=== PATIENT | male | born 1975 | race Caucasian/White ===

== ENCOUNTER → 2017-09-04 | Outpatient (CLI) | payer OTHER, BC ==
[~2017-09-04] MED LIST: ATOR10TA PO; HYDR12.58 PO; HYDROCODONE PO; LISI40TA PO; METH750T2 PO
[2017-09-04 09:30] LABS: HEMATOCRIT 55.7 % (39.2-51.8); WHITE BLOOD COUNT 6.9 x10^3/uL (3.4-10)
[2017-09-04 09:44] LABS: BLOOD UREA NITROGEN 24 mg/dL (7-18)
[2017-09-04 09:48] LABS: ASPARTATE AMINO TRANSFERASE 38 U/L (15-37)
== END | disposition home or self-care (01) ==
LOC: STAR 08:34
PROVIDERS: ATTEND Neurological Surgery
DX: Z01.818 Encounter for other preprocedural examination (principal); M51.36 Other intervertebral disc degeneration, lumbar region; M48.02 Spinal stenosis, cervical region
CPT/HCPCS: 36415; 71020; 80053; 81003; 85025; 85610; 85730; 93005

== ENCOUNTER 2017-09-14 07:00 | Inpatient (IN) | payer OTHER, BC ==
[~2017-09-14] VITALS: Ht 188 cm; Wt 97.4 kg
[2017-09-14] MEDS ORDERED: LACTATED RINGERS 1,000 ML IV SCH (09:37)
[2017-09-14 09:43] VITALS: BP 167/91
[2017-09-14] MEDS ORDERED: FENTANYL PF 250 MCG/5ML ONE (10:19)
[2017-09-14] MEDS ORDERED: MIDAZOLAM 1 MG/ML, 2ML ONE (10:19)
[2017-09-14] MEDS ORDERED: ROCURONIUM 10 MG/ML,10ML ONE ×2 (10:20→13:16)
[2017-09-14] MEDS ORDERED: SUCCINYLCHOLINE 20 MG/ML, 10ML ONE (10:21)
[2017-09-14] MEDS ORDERED: PROPOFOL 150 ML ONE (10:23)
[2017-09-14] MEDS ORDERED: BUPIVACAINE/PF 0.5% ONE (11:03)
[2017-09-14] MEDS ORDERED: THROMBIN 5,000 UNIT VIAL TP ONE (11:04)
[2017-09-14] MEDS ORDERED: EPINEPHRINE 1 MG/ML, 1ML ONE (11:04)
[2017-09-14] MEDS ORDERED: BACITRACIN 50,000 UNIT ONE (11:04)
[2017-09-14] MEDS ORDERED: DEXAMETHASONE 4 MG/ML, 1ML ONE ×3 (11:22)
[2017-09-14] MEDS ORDERED: BUPIVACAINE/PF-EPI 0.5% 1:200K INFIL ONE (11:59)
[2017-09-14] MEDS ORDERED: PROPOFOL 50 ML ONE (13:13)
[2017-09-14] MEDS ORDERED: ONDANSETRON 2MG/ML, 2ML ONE (13:16)
[2017-09-14] MEDS ORDERED: ACETAMINOPHEN 325 MG TABLET ONE (14:21)
[2017-09-14] MEDS ORDERED: FENTANYL PF 100 MCG/2ML ONE (14:21)
[2017-09-14] MEDS ORDERED: OXYcodone 5 MG/5 ML ORAL.SOL UDC ONE (14:21)
[2017-09-14] MEDS: FENTANYL PF 100 MCG/2ML IV PRN ×2 (14:27→14:46)
[2017-09-14] MEDS ORDERED: MAGNESIUM HYDROXIDE 8%, 30ML UDC PO PRN (14:30)
[2017-09-14] MEDS ORDERED: ACETAMINOPHEN 325 MG TABLET PO PRN (14:30)
[2017-09-14] MEDS ORDERED: SENNA/DOCUSATE TABLET PO PRN (14:30)
[2017-09-14] MEDS ORDERED: HYDROcodone/APAP 5/325 TABLET PO PRN (14:30)
[2017-09-14] MEDS ORDERED: ONDANSETRON 2MG/ML, 2ML IVPush PRN ×2 (14:30)
[2017-09-14] MEDS ORDERED: BISACODYL 10 MG SUPP PR PRN (14:30)
[2017-09-14] MEDS ORDERED: MEPERIDINE/PF 25MG/0.5ML IVPush PRN (14:30)
[2017-09-14] MEDS ORDERED: PROMETHAZINE 25 MG/ML, 1ML IM PRN (14:30)
[2017-09-14] MEDS ORDERED: PROMETHAZINE 25 MG/ML, 1ML IV PRN (14:30)
[2017-09-14] MEDS ORDERED: DIAZEPAM 5 MG/ML, 2ML IVPush PRN (14:30)
[2017-09-14] MEDS ORDERED: METHOCARBAMOL 750 MG TABLET PO PRN (14:30)
[2017-09-14] MEDS ORDERED: HYDROmorphone 1 MG/ML, 1ML IVPush PRN (14:30)
[2017-09-14] MEDS ORDERED: LABETALOL 5MG/ML, 20ML IV PRN (14:30)
[2017-09-14] MEDS ORDERED: hydrALAzine 20 MG/ML, 1ML IV PRN (14:30)
[2017-09-14] MEDS ORDERED: LABETALOL 5MG/ML, 20ML IVPush PRN (14:30)
[2017-09-14] MEDS ORDERED: PHARMACY MAY ADJ FOR RENAL FX MC PRN (14:30)
[2017-09-14] MEDS ORDERED: DIPHENHYDRAMINE 50 MG/ML, 1ML IM PRN (14:30)
[2017-09-14] MEDS ORDERED: DIPHENHYDRAMINE 50 MG/ML, 1ML IVPush PRN (14:30)
[2017-09-14] MEDS ORDERED: DIPHENHYDRAMINE 50 MG CAPSULE PO PRN (14:30)
[2017-09-14] MEDS ORDERED: OXYcodone 5 MG/5 ML ORAL.SOL UDC PO PRN (14:30)
[2017-09-14] MEDS ORDERED: HYDROmorphone 2 MG/ML, 1ML ONE (14:53)
[2017-09-14] MEDS: HYDROmorphone 1 MG/ML, 1ML IV PRN ×3 (14:55→15:21)
[2017-09-14] MEDS: NS + 20MEQ KCL 1,000 ML IV SCH (16:21)
[2017-09-14] MEDS: DEXAMETHASONE 4 MG/ML, 1ML IVPush SCH ×2 (16:21→22:00)
[2017-09-14 17:22] VITALS: BP 151/88
[2017-09-14] MEDS: OXYcodone/APAP 5/325MG TABLET PO PRN ×2 (18:41→23:17)
[2017-09-14] MEDS: CEFAZOLIN PMX 1GM/50ML 50 ML IVPB SCH (19:03)
[2017-09-14 20:00] VITALS: BP 142/71
[2017-09-14] MEDS ORDERED: ATORVASTATIN 10 MG TABLET PO SCH (21:00)
[2017-09-14] MEDS: SODIUM CHLORIDE FLUSH 10ML SYR IVF SCH (22:01)
[2017-09-15] MEDS: DEXAMETHASONE 4 MG/ML, 1ML IVPush SCH ×2 (03:44→11:41)
[2017-09-15] MEDS: CEFAZOLIN PMX 1GM/50ML 50 ML IVPB SCH (03:45)
[2017-09-15] MEDS: NS + 20MEQ KCL 1,000 ML IV SCH (03:50)
[2017-09-15 03:55] VITALS: BP 151/78
[2017-09-15] MEDS: OXYcodone/APAP 5/325MG TABLET PO PRN ×3 (04:06→11:41)
[2017-09-15 04:33] LABS: HEMOGLOBIN 15.1 g/dL (13.7-18.0); WHITE BLOOD COUNT 11.3 x10^3/uL (3.4-10)
[2017-09-15 04:37] LABS: BLOOD UREA NITROGEN 17 mg/dL (7-18)
[2017-09-15] MEDS ORDERED: ENOXAPARIN 30 MG/0.3 ML SQ SCH (06:00)
[2017-09-15 07:41] VITALS: BP 133/65
[2017-09-15] MEDS: SODIUM CHLORIDE FLUSH 10ML SYR IVF SCH (08:09)
[2017-09-15] MEDS ORDERED: HYDROCHLOROTHIAZIDE 12.5 MG CAPSULE PO SCH (09:00)
[2017-09-15] MEDS ORDERED: LISINOPRIL 20 MG TABLET PO SCH (09:00)
[2017-09-15] MEDS ORDERED: METH4TAB2 PO (13:27)
[2017-09-15] MEDS ORDERED: HYDR-3307 PO (13:27)
[2017-09-15] MEDS ORDERED: METH750T87 PO (13:28)
[2017-09-15] MEDS ORDERED: OMEP20TA62 PO (13:28)
== END 2017-09-15 14:30 | disposition home or self-care (01) | DRG 473 ==
LOC: 4NOR 09:01
PROVIDERS: ADMIT Neurological Surgery; ATTEND Neurological Surgery
PROC: 01N10ZZ Release Cervical Nerve, Open Approach (ICD-10-PCS; 2017-09-14)
PROC: 0RB30ZZ Excision of Cervical Vertebral Disc, Open Approach (ICD-10-PCS; 2017-09-14)
PROC: 4A11X4G Monitoring of Peripheral Nervous Electrical Activity, Intraoperative, External Approach (ICD-10-PCS; 2017-09-14)
PROC: 0RG20A0 Fusion of 2 or more Cervical Vertebral Joints with Interbody Fusion Device, Anterior Approach, Anterior Column, Open Approach (ICD-10-PCS; principal; 2017-09-14 11:30)
DX: M48.02 Spinal stenosis, cervical region (principal); M40.292 Other kyphosis, cervical region; M54.12 Radiculopathy, cervical region; Z82.49 Family history of ischemic heart disease and other diseases of the circulatory system; Z87.891 Personal history of nicotine dependence; Z82.61 Family history of arthritis
CPT/HCPCS: 36415; 72040; 80048; 85025; C1713; J0171; J0690; J1100; J1170; J1650; J2250; J2405; J2704; J3010; J3360; J3480; J3490; C1776; J0330